=== PATIENT | female | born 1965 | race Caucasian/White ===

== ENCOUNTER 2020-05-24 11:57 | Emergency (ER) | payer OTHER ==
[~2020-05-24] VITALS: Ht 175.3 cm; Wt 99.8 kg
[~2020-05-24 11:57] MED LIST: ACYCLOVIR800 MG PO; FOLIC ACID1 MG PO; LEVOTHROID175 MCG; MAPAP325 MG PO; MOTRIN IB200 MG PO; MULTI-DAY PLUS1 EAC1 PO; NORCO 10-325 T1 EACH PO; NORCO 5-325 TA1 EACH PO; ONDANSETRON ODT8 MG PO; OXYCODON-ACETA1 EAC2 PO; PERCOCET 5-3251 EACH PO; PROMETHAZINE HC25 M1 PO; PROZAC20 MG; PROZAC20 MG PO; SYNTHROID175 MCG PO; ZOFRAN ODT4 MG PO; ZOFRAN ODT4 MG SL
--- OUTSIDE RECORDS SUMMARY | 2020-05-24 12:00 | XMS ---
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 Security Trash Truck Driver Events No recent Security Events currently on file CRITERIA MET - Group Notification - PDMP CARE PROVIDERS KRYSTA LYONS [facility] 03/21/2018-Current PHONE: [phone] Henrry has no Care Guidelines for this patient. Care History Medical/Surgical 03/21/2018 [facility] - PATIENT HAS AN APT TO ESTABLISH CARE WITH DR LYONS ON 04/13/18 @ 10:00AM. - Patient is currently established with [facility]. If patient is seen in the ED during business hours. Please contact CHWs at [facility]. Care Recommendation: This patient has had 5 or more Emergency Department visits in the last 12 months.\T\nbsp; Patient requires education on the scope and purpose of the ED as an acute care provider not a Primary Care Provider and should not be utilized for chronic conditions.\T\nbsp; These are guidelines and the provider should exercise clinical judgment when providing care. E.D. VISIT COUNT (12 MO.) 1 [facility] TOTAL 1 NOTE: Visits indicate total known visits. ED/UCC VISIT TRACKING (12 MO.) 05/24/2020 11:[address] [facility] [place] TYPE: Emergency COMPLAINT: - LACERATED THUMB INPATIENT VISIT TRACKING (12 MO.) No inpatient visits to display in this time frame [email or web address]
[2020-05-24] MEDS ORDERED: MELOXICAM15 MG PO (12:09)
[2020-05-24] MEDS ORDERED: ADDERALL XR 2020 MG PO (12:10)
[2020-05-24] MEDS ORDERED: ALPRAZOLAM0.5 MG PO (12:10)
[2020-05-24] MEDS ORDERED: QUETIAPINE FUM100 MG PO (12:10)
== END 2020-05-24 13:45 | disposition home or self-care (01) ==
LOC: ED 11:57
PROC: 0HQGXZZ Repair Left Hand Skin, External Approach (ICD-10-PCS; principal; 2020-05-24)
DX: S61.012A Laceration without foreign body of left thumb without damage to nail, initial encounter (principal); W26.0XXA Contact with knife, initial encounter; Z88.5 Allergy status to narcotic agent; Z79.899 Other long term (current) drug therapy
CPT/HCPCS: 12001; 99282-25

== ENCOUNTER 2020-08-28 11:59 | Emergency (ER) | payer OTHER ==
[~2020-08-28] VITALS: Ht 175.3 cm; Wt 99.8 kg
[~2020-08-28 11:59] MED LIST changes: +ADDERALL XR 2020 MG PO; +ALPRAZOLAM0.5 MG PO; +MELOXICAM15 MG PO; +QUETIAPINE FUM100 MG PO
--- OUTSIDE RECORDS SUMMARY | 2020-08-28 12:02 | XMS ---
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 Security Compressor Mechanic Events No recent Security Events currently on file CRITERIA MET - Group Notification - PDMP CARE PROVIDERS KRYSTA LYONS [facility] 03/21/2018-Current PHONE: [phone] [facility]-Current PHONE: [phone] Henrry has no Care Guidelines for this patient. EBen VISIT COUNT (12 MO.) 1 Chika Arambula [place] TOTAL 3 NOTE: Visits indicate total known visits. ED/UCC VISIT TRACKING (12 MO.) 08/28/2020 11:[address] [facility] [place] TYPE: Emergency COMPLAINT: - LF SHOULDER INJURY 07/17/2020 08:18 [facility] [place] TYPE: Emergency DIAGNOSES: - Laceration without foreign body, left foot, initial encounter - Fall 05/24/2020 11:58 [facility] [place] TYPE: Emergency COMPLAINT: - LACERATED THUMB DIAGNOSES: - Laceration without foreign body of left thumb without damage to nail, initial encounter - Allergy status to narcotic agent - Contact with knife, initial encounter - Other detention (current) drug therapy INPATIENT VISIT TRACKING (12 MO.) No inpatient visits to display in this time frame [email or web address]
== END 2020-08-28 14:25 | disposition home or self-care (01) ==
LOC: ED 11:59
DX: S43.402A Unspecified sprain of left shoulder joint, initial encounter (principal); S63.501A Unspecified sprain of right wrist, initial encounter; W18.30XA Fall on same level, unspecified, initial encounter; Z88.5 Allergy status to narcotic agent; Z79.899 Other long term (current) drug therapy
CPT/HCPCS: 73030; 73110; 99283-25

== ENCOUNTER 2020-08-31 01:34 | Emergency (ER) | payer OTHER ==
[~2020-08-31] VITALS: Ht 175.3 cm; Wt 99.8 kg
--- OUTSIDE RECORDS SUMMARY | 2020-08-31 01:38 | XMS ---
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 Security Brim Raiser Events No recent Security Events currently on file CRITERIA MET - Group Notification - PDMP - [facility] - 2 Visits in 30 Days CARE PROVIDERS KRYSTA LYONS [facility] 03/21/2018-Current PHONE: [phone] [facility]Current PHONE: [phone] Henrry has no Care Guidelines for this patient. EBen VISIT COUNT (12 MO.) Chika Santana[address] TOTAL 4 NOTE: Visits indicate total known visits. ED/UCC VISIT TRACKING (12 MO.) 08/31/2020 01:35 [facility] [place] TYPE: Emergency COMPLAINT: - LT SHOULDER PAIN 08/28/2020 11:59 [facility] [place] TYPE: Emergency COMPLAINT: - LF SHOULDER INJURY [facility]17/2020 08:18 [facility] TYPE[facility] Emergency DIAGNOSES: - Laceration without foreign body, left foot, initial encounter - Fall 05/24/2020 11:[address] [facility] [place] TYPE: Emergency COMPLAINT: - LACERATED THUMB DIAGNOSES: - Laceration without foreign body of left thumb without damage to nail, initial encounter - Allergy status to narcotic agent - Contact with knife, initial encounter - Other terminal operations supervisor (current) drug therapy INPATIENT VISIT TRACKING (12 MO.) No inpatient visits to display in this time frame [id number]
[2020-08-31] MEDS ORDERED: MELOXICAM15 MG PO (02:22)
[2020-08-31] MEDS ORDERED: ZOFRAN4 MG PO (02:31)
== END 2020-08-31 02:38 | disposition home or self-care (01) ==
LOC: ED 01:34
DX: S43.402A Unspecified sprain of left shoulder joint, initial encounter (principal); X58.XXXA Exposure to other specified factors, initial encounter; Z88.5 Allergy status to narcotic agent; Z79.899 Other long term (current) drug therapy
CPT/HCPCS: 99283

== ENCOUNTER 2020-09-15 05:07 | Emergency (ER) | payer OTHER ==
[~2020-09-15] VITALS: Ht 175.3 cm; Wt 107.0 kg
[~2020-09-15 05:07] MED LIST changes: +ZOFRAN4 MG PO
--- OUTSIDE RECORDS SUMMARY | 2020-09-15 05:23 | XMS ---
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 Security Backhaul Driver Events No recent Security Events currently on file CRITERIA MET - Group Notification - PDMP - [facility] - 2 Visits in 30 Days CARE PROVIDERS KRYSTA LYONS [facility] 03/21/2018-Current PHONE: [phone] [facility]Current PHONE: [phone] Henrry has no Care Guidelines for this patient. EArielle. VISIT COUNT (12 MO.) Chika Giraldo [address] TOTAL 5 NOTE: Visits indicate total known visits. ED/UCC VISIT TRACKING (12 MO.) 09/15/2020 05:07 [facility] CARL[facility] [place] TYPE: Emergency COMPLAINT: - LT SHOULDER PAIN 08/31/2020 01:35 [facility] [place] [place] TYPE: Emergency COMPLAINT: - LT SHOULDER PAIN DIAGNOSES: - Allergy status to narcotic agent - Exposure to other specified factors, initial encounter - Unspecified sprain of left shoulder joint, initial encounter - Pain in left shoulder - Other box folding machine operator (current) drug therapy 08/28/2020 11:59 [facility] CAR[facility] [place] TYPE: Emergency COMPLAINT: - LF SHOULDER INJURY DIAGNOSES: - Unspecified sprain of right wrist, initial encounter - Pain in left shoulder - Allergy status to narcotic agent - Other box folding machine operator (current) drug therapy - Unspecified sprain of left shoulder joint, initial encounter - Fall on same level, unspecified, initial encounter 07/17/2020 08:18 [facility] [place] TYPE: Emergency DIAGNOSES: - Laceration without foreign body, left foot, initial encounter - Fall 05/24/2020 11:58 [facility] CARL[facility] [place] TYPE: Emergency COMPLAINT: - LACERATED THUMB DIAGNOSES: - Laceration without foreign body of left thumb without damage to nail, initial encounter - Allergy status to narcotic agent - Contact with knife, initial encounter - Other custodial (current) drug therapy INPATIENT VISIT TRACKING (12 MO.) No inpatient visits to display in this time frame [id number]
[2020-09-15] MEDS ORDERED: ZOFRAN4 MG PO (05:43)
--- NOTE | 2020-09-15 09:44 | NUR ---
RAUL BASHIR AT [facility] PATIENT HAS BEEN DISCHARGE FROM DR. LAKHANI PRACTICE AT THIS TIME. ATTEMPTED TO CONTACT PATIENT FOR FOLLOW UP, NO ANSWER. WILL CONTINUE TO ATTEMPT TO CONTACT PATIENT.
== END 2020-09-15 05:58 | disposition home or self-care (01) ==
LOC: ED 05:07
DX: M25.512 Pain in left shoulder (principal); R11.0 Nausea; Z88.5 Allergy status to narcotic agent; Z79.899 Other long term (current) drug therapy
CPT/HCPCS: 99283

== ENCOUNTER 2020-10-05 17:35 | Emergency (ER) | payer OTHER ==
[~2020-10-05] VITALS: Ht 175.3 cm; Wt 106.6 kg
--- OUTSIDE RECORDS SUMMARY | 2020-10-05 17:38 | XMS ---
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 Security Aircraft Sales Representative Events No recent Security Events currently on file CRITERIA MET - 6 ED Visits in 6 Months - [facility] - 2 Visits in 30 Days - Group Notification - PDMP CARE PROVIDERS KRYSTA LYONS [facility] 03/21/2018-Current PHONE: [phone] [facility]-Current PHONE: [phone] Henrry has no Care Guidelines for this patient. E.DColton VISIT COUNT (12 MO.) [address] [place] [address] TOTAL 6 NOTE: Visits indicate total known visits. ED/UCC VISIT TRACKING (12 MO.) 10/05/2020 17:36 [facility] CARL[facility] [place] TYPE: Emergency COMPLAINT: - WEAKNESS 09/15/2020 05:07 [facility] [place] TYPE: Emergency COMPLAINT: - LT SHOULDER PAIN DIAGNOSES: - Other terminal computer operator (current) drug therapy - Nausea - Allergy status to narcotic agent - Pain in left shoulder 08/31/2020 01:35 [facility] CARL[facility] [place] TYPE: Emergency COMPLAINT: - LT SHOULDER PAIN DIAGNOSES: - Allergy status to narcotic agent - Exposure to other specified factors, initial encounter - Unspecified sprain of left shoulder joint, initial encounter - Pain in left shoulder - Other terminal computer operator (current) drug therapy 08/28/2020 11:59 [facility] CARL[facility] [place] TYPE: Emergency COMPLAINT: - LF SHOULDER INJURY DIAGNOSES: - Unspecified sprain of right wrist, initial encounter - Pain in left shoulder - Allergy status to narcotic agent - Other terminal computer operator (current) drug therapy - Unspecified sprain of left shoulder joint, initial encounter - Fall on same level, unspecified, initial encounter 07/17/2020 08:18 [facility] [place] TYPE: Emergency DIAGNOSES: - Laceration without foreign body, left foot, initial encounter - Fall 05/24/2020 11:58 [facility] CARL[facility] [place] TYPE: Emergency COMPLAINT: - LACERATED THUMB DIAGNOSES: - Laceration without foreign body of left thumb without damage to nail, initial encounter - Allergy status to narcotic agent - Contact with knife, initial encounter - Other care home (current) drug therapy INPATIENT VISIT TRACKING (12 MO.) No inpatient visits to display in this time frame [id number]
== END 2020-10-05 20:54 | disposition home or self-care (01) ==
LOC: ED 17:35
DX: R56.9 Unspecified convulsions (principal); Z88.5 Allergy status to narcotic agent; Z79.899 Other long term (current) drug therapy
CPT/HCPCS: 80053; 81001; 85025; 96374; 99284-25; G0480; J1885

== ENCOUNTER 2020-10-07 15:56 | Emergency (ER) | payer OTHER ==
[~2020-10-07] VITALS: Ht 175.3 cm; Wt 106.6 kg
--- OUTSIDE RECORDS SUMMARY | 2020-10-07 15:58 | XMS ---
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 Security Event Marketing Intern Events No recent Security Events currently on file CRITERIA MET - [facility] - 2 Visits in 30 Days - 6 ED Visits in 6 Months - [facility] - 3 Facilities in 90 Days - Group [facility] 03/21/2018-Current PHONE: [phone] Shazia Mullen Community Health Worker 10/07/2020-Current PH[facility]: [phone] [facility]Current PHONE: [phone] Henrry has no Care Guidelines for this patient. E.D. VISIT COUNT (12 [address] 1 [facility] 1 [facility] 6 JUAN CARLOS [place] TOTAL 8 NOTE: Visits indicate total known visits. ED/UCC VISIT TRACKING (12 MO.) 10/07/2020 15:57 [facility] CAR[facility] [place] TYPE: Emergency COMPLAINT: - SEIZURE 10/06/2020 22:53 [facility] [place] TYPE: Emergency DIAGNOSES: - Pain in left shoulder - SHOULDER PAIN 10/05/2020 17:[address] [facility] [place] TYPE: Emergency COMPLAINT: - WEAKNESS 09/15/2020 05:07 [facility] [place] TYPE: Emergency COMPLAINT: - LT SHOULDER PAIN DIAGNOSES: - Other prison (current) drug therapy - Nausea - Allergy status to narcotic agent - Pain in left shoulder 08/31/2020 01:35 [facility] [place] TYPE: Emergency COMPLAINT: - LT SHOULDER PAIN DIAGNOSES: - Allergy status to narcotic agent - Exposure to other specified factors, initial encounter - Unspecified sprain of left shoulder joint, initial encounter - Pain in left shoulder - Other prison (current) drug therapy 08/28/2020 11:59 [facility] [place] TYPE: Emergency COMPLAINT: - LF SHOULDER INJURY DIAGNOSES: - Unspecified sprain of right wrist, initial encounter - Pain in left shoulder - Allergy status to narcotic agent - Other long term acute care registered nurse (current) drug therapy - Unspecified sprain of left shoulder joint, initial encounter - Fall on same level, unspecified, initial encounter 07/17/2020 08:18 [facility] [place] TYPE: Emergency DIAGNOSES: - Laceration without foreign body, left foot, initial encounter - Fall 05/24/2020 11:58 [facility] CARL[facility] [place] TYPE: Emergency COMPLAINT: - LACERATED THUMB DIAGNOSES: - Laceration without foreign body of left thumb without damage to nail, initial encounter - Allergy status to narcotic agent - Contact with knife, initial encounter - Other prison (current) drug therapy INPATIENT VISIT TRACKING (12 MO.) No inpatient visits to display in this time frame [id number]
--- NOTE | 2020-10-09 08:50 | EKG ---
[facility] [address] [facility] [place], [place] [address] Signed Normal sinus rhythm Nonspecific T wave abnormality Abnormal ECG No previous ECGs available Confirmed by DONOVAN JARAMILLO MD ([id number]) on 10/09/2020 8:50:30 AM Electronically Signed By: DONOVAN JARAMILLO MD 10/09/20 0850 PATIENT NAME: RAUL PRESTON Electrocardiogram DATE OF : 67 PHYSICIAN: DONOVAN JARAMILLO MD REPORT #: [id number] REPORT IS CONFIDENTIAL AND NOT TO BE RELEASED WITHOUT AUTHORIZATION
== END 2020-10-07 17:55 | disposition home or self-care (01) ==
LOC: ED 15:56
PROC: 0T9B70Z Drainage of Bladder with Drainage Device, Via Natural or Artificial Opening (ICD-10-PCS; principal; 2020-10-07)
DX: R56.9 Unspecified convulsions (principal); Z88.5 Allergy status to narcotic agent; Z79.899 Other long term (current) drug therapy
CPT/HCPCS: 51701; 80053; 81001; 82803; 85025; 93005; 93010; 99284-25; G0480; J2310

== ENCOUNTER 2020-11-19 02:30 | Emergency (ER) | payer OTHER ==
[~2020-11-19] VITALS: Ht 175.3 cm; Wt 106.6 kg
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
== END 2020-11-19 05:41 | disposition home or self-care (01) ==
LOC: ED 02:30
DX: M25.512 Pain in left shoulder (principal); M25.552 Pain in left hip; M25.571 Pain in right ankle and joints of right foot; M25.572 Pain in left ankle and joints of left foot; Z88.5 Allergy status to narcotic agent; Z79.899 Other long term (current) drug therapy
CPT/HCPCS: 73030; 73502; 73610; 96374; 96375; 99283-25; J1885; J2405; J7121

== ENCOUNTER 2021-05-01 10:42 | Emergency (ER) | payer OTHER ==
[~2021-05-01] VITALS: Ht 175.3 cm; Wt 106.6 kg
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
--- NOTE | 2021-05-01 20:26 | EKG ---
[facility] [address] [facility] [place] [address] Signed Normal sinus rhythm Normal ECG When compared with ECG of 07-OCT-2020 17:34, Nonspecific T wave abnormality has replaced inverted T waves in Anterior leads Confirmed by THIEN PITTMAN MD ([id number]) on 05/01/2021 8:25:59 PM Electronically Signed By: THIEN PITTMAN MD 05/01/212025 PATIENT NAME: RAUL PRESTON Electrocardiogram DATE OF : 67 PHYSICIAN: THIEN PITTMAN MD REPORT #: [id number] REPORT IS CONFIDENTIAL AND NOT TO BE RELEASED WITHOUT AUTHORIZATION
[2021-05-02] MEDS ORDERED: LEVOTHYROXINE100 MCG PO (08:46)
== END 2021-05-03 18:02 ==
LOC: ED 10:42
DX: F32.3 Major depressive disorder, single episode, severe with psychotic features (principal); D64.9 Anemia, unspecified; L00 Staphylococcal scalded skin syndrome; Z20.822 Contact with and (suspected) exposure to COVID-19; Z88.5 Allergy status to narcotic agent; Z79.890 Hormone replacement therapy
CPT/HCPCS: 80503; 81001; 84439; 84443; 85025; 93005; 93010; 99285-25; A9270; C9803; G0480; U0003

== ENCOUNTER 2021-05-13 08:45 | Emergency (ER) | payer OTHER ==
[~2021-05-13] VITALS: Ht 175.3 cm; Wt 97.6 kg
[~2021-05-13 08:45] MED LIST changes: +LEVOTHYROXINE100 MCG PO
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
[2021-05-13] MEDS ORDERED: PERCOCET 5-3251 EACH PO (10:39)
[2021-05-13] MEDS ORDERED: QUETIAPINE FUM300 MG PO (13:03)
[2021-05-13] MEDS ORDERED: TRAMADOL HCL50 MG PO (13:03)
[2021-05-13] MEDS ORDERED: FLUOXETINE HCL10 MG PO (13:03)
== END 2021-05-13 10:57 | disposition home or self-care (01) ==
LOC: ED 08:45
DX: M86.9 Osteomyelitis, unspecified (principal); Z88.5 Allergy status to narcotic agent; Z79.899 Other long term (current) drug therapy
CPT/HCPCS: 99283

== ENCOUNTER 2021-11-07 15:30 | Emergency (ER) | payer OTHER ==
[~2021-11-07] VITALS: Ht 175.3 cm; Wt 103.6 kg
[~2021-11-07 15:30] MED LIST changes: +FLUOXETINE HCL10 MG PO; +QUETIAPINE FUM300 MG PO; +TRAMADOL HCL50 MG PO
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
[2021-11-07] MEDS ORDERED: FLUOXETINE HCL20 MG PO (16:00)
[2021-11-07] MEDS ORDERED: EUTHYROX200 MCG PO (16:01)
[2021-11-07] MEDS ORDERED: ALPRAZOLAM0.5 MG PO (16:01)
[2021-11-07] MEDS ORDERED: EUTHYROX25 MCG PO (16:01)
[2021-11-07] MEDS ORDERED: QUETIAPINE FUM400 MG PO (16:02)
[2021-11-07] MEDS ORDERED: PRAZOSIN HCL5 MG PO (16:04)
[2021-11-07] MEDS ORDERED: PRAZOSIN HCL1 MG PO (16:04)
[2021-11-07] MEDS ORDERED: PROZAC40 MG PO (16:07)
== END 2021-11-08 12:32 | disposition home or self-care (01) ==
LOC: ED 15:30
DX: R45.851 Suicidal ideations (principal); F43.10 Post-traumatic stress disorder, unspecified; Z88.5 Allergy status to narcotic agent; Z79.899 Other long term (current) drug therapy; Z20.822 Contact with and (suspected) exposure to COVID-19
CPT/HCPCS: 36415; 80053; 81001; 84443; 85025; 85060; 87502; 99285; A9270; C9803; G0480; U0003

== ENCOUNTER 2021-11-11 15:27 | Emergency (ER) | payer OTHER ==
[~2021-11-11] VITALS: Ht 175.3 cm; Wt 103.6 kg
[~2021-11-11 15:27] MED LIST changes: +EUTHYROX200 MCG PO; +EUTHYROX25 MCG PO; +FLUOXETINE HCL20 MG PO; +PRAZOSIN HCL1 MG PO; +PRAZOSIN HCL5 MG PO; +PROZAC40 MG PO; +QUETIAPINE FUM400 MG PO
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
== END 2021-11-12 13:23 ==
LOC: ED 15:27
PROC: 0T9B70Z Drainage of Bladder with Drainage Device, Via Natural or Artificial Opening (ICD-10-PCS; principal; 2021-11-11)
DX: Z00.8 Encounter for other general examination (principal); Z20.822 Contact with and (suspected) exposure to COVID-19; Z88.5 Allergy status to narcotic agent; Z79.899 Other long term (current) drug therapy
CPT/HCPCS: 36415; 51701; 80053; 81001; 84443; 85025; 85060; 87502; 99284; A9270; C9803; G0480; U0003

== ENCOUNTER 2022-04-16 13:14 | Emergency (ER) | payer OTHER ==
[~2022-04-16] VITALS: Ht 175.3 cm; Wt 103.4 kg
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
[2022-04-16] MEDS ORDERED: DIAZEPAM10 MG PO (14:47)
[2022-04-16] MEDS ORDERED: METFORMIN HCL500 MG PO (14:47)
[2022-04-16] MEDS ORDERED: ONDANSETRON ODT4 MG PO (18:00)
[2022-04-16] MEDS ORDERED: BUTALBITAL-ACE1 EACH PO (18:00)
== END 2022-04-16 18:52 | disposition home or self-care (01) ==
LOC: ED 13:14
DX: R51.9 Headache, unspecified (principal); Z88.5 Allergy status to narcotic agent; Z79.899 Other long term (current) drug therapy; Z79.84 Long term (current) use of oral hypoglycemic drugs
CPT/HCPCS: 36415; 70450; 70496; 70498; 80053; 81001; 81003; 84484; 85025; 85060; 85610; 85730; 99284-25; A9270; J1170; J2060; Q9967

== ENCOUNTER 2023-12-26 14:10 | Emergency (ER) | payer MEDICARE, OTHER ==
[~2023-12-26] VITALS: Ht 175.3 cm; Wt 103.3 kg
[~2023-12-26 14:10] MED LIST changes: +BUTALBITAL-ACE1 EACH PO; +DIAZEPAM10 MG PO; +HYDROCODON-ACE1 EA10 PO; +METFORMIN HCL500 MG PO; +ONDANSETRON ODT4 MG PO
[2023-12-26 15:31] VITALS: BP 117/84
== END 2023-12-26 15:34 | disposition home or self-care (01) ==
LOC: ED 14:10
DX: S63.501A Unspecified sprain of right wrist, initial encounter (principal); S83.91XA Sprain of unspecified site of right knee, initial encounter; W18.39XA Other fall on same level, initial encounter; Z88.5 Allergy status to narcotic agent; Z79.890 Hormone replacement therapy; Z79.899 Other long term (current) drug therapy
CPT/HCPCS: 73110; 73560; 99283